=== PATIENT | female | born 1955 | race Two or more races ===

== ENCOUNTER → 2017-10-08 16:09 | Outpatient (CLI) | payer OTHER, SELFPAY ==
--- NOTE | 2017-10-08 16:16 | MM_ITS ---
MM Dig screening mamm BI w/CAD ORDERING PHYSICIAN : Genevieve Almaguer PATIENT AGE: 62 years GENDER: Female COMPARISON: September 2016, 2014 INDICATION: ITS.REASON: SCREENING 62-year-old. No hormones. No new complaints. Noncontributory family history. Does not speak Arabic. TECHNIQUE: Standard CC and MLO images were obtained. R2 CAD reviewed. FINDINGS: Lower density breast with minimal fibroglandular elements bilaterally. Mild asymmetry again noted. No suspicious nor dominant mass. No suspicious calcifications. Scant vascular calcifications bilateral Architecture appears similar to previous studies with no significant new areas concern either breast RIGHT BREAST:A stable architecture no new findings LEFT BREAST:Fibroglandular elements slight more evident at the superior left breast IMPRESSION: Stable bilateral mammogram No new areas of significant concern Bilateral follow-up one year BI-RADS Category: 1 Negative RECOMMENDED FOLLOW-UP: 1YR 1 YEAR FOLLOW-UP (A letter has been sent to the patient regarding results of the study.)
== END ==
PROVIDERS: Family Provider Internal Medicine Adolescent Medicine; PCP Nurse Practitioner Family; Visit Provider Nurse Practitioner Family
DX: Z12.31 Encounter for screening mammogram for malignant neoplasm of breast (principal)
CPT/HCPCS: 77067

== ENCOUNTER → 2019-01-13 08:02 | Outpatient (CLI) | payer OTHER, SELFPAY ==
--- NOTE | 2019-01-13 08:08 | MM_ITS ---
PROCEDURE: MM DIG SCREENING MAMM BI W/CAD CLINICAL INDICATION: SCREENING There is no personal or family history of breast cancer COMPARISON: [facility] DIG MAMM-SCREEN TIM from 09/20/2015 [facility] DIG MAMM-SCREEN TIM W/CAD from 09/25/2016 [facility] MM Dig screening mamm BI w/CAD from 10/08/2017 TECHNIQUE: Standard CC and MLO images were obtained. R2 CAD reviewed. FINDINGS: Scattered fibroglandular densities are seen throughout both breasts. There is faint scattered arterial calcification in each breast. There is no new or suspicious lesion in either breast and no suspicious microcalcifications. There is a stable small low-lying node left axilla. IMPRESSION: Fibrofatty parenchyma with no suspicious lesions seen BI-RAD Category: 2 Benign Finding(s) FOLLOW-UP: 1YR 1 Year Follow-up (A letter has been sent to the patient regarding results of the study.) Dictated by: Dr. Omero Garza MD 01/13/2019 08:[address] Omero Garza MD in [place] 01/13/2019 08:47
== END ==
PROVIDERS: Visit Provider Nurse Practitioner Obstetrics & Gynecology
DX: Z12.31 Encounter for screening mammogram for malignant neoplasm of breast (principal)
CPT/HCPCS: 77067